=== PATIENT | female | born 1995 | race Hispanic/Latino ===

== ENCOUNTER 2017-06-15 20:48 | Emergency (ER) | payer BC ==
[2017-06-15] MEDS ORDERED: Sodium Chloride 0.9% 1,000 ML IV STA ×2 (20:56→22:52)
--- NOTE | 2017-06-15 21:06 | ED PDOC ---
HPI: Psych/Substance Abuse Time Seen by Provider: 06/15/17 20:54 Chief Complaint (Nursing): Alcohol Ingestion Chief Complaint (Provider): Alcohol Intoxication ED Caveat: Uncooperative History Per: Patient, EMS History/Exam Limitations: intoxication Onset/Duration Of Symptoms: Hrs Additional Complaint(s): Patient is a 21 y/o female with a past medical history of anxiety brought to the ED by EMS after being found on the street intoxicated and combative earlier tonight. Patient admits to drinking alcohol and reports no injuries. History is limited due to patient's uncooperative state. PCP: Non [facility]PH Provider Past Medical History Reviewed: Historical Data, Nursing Documentation, Vital Signs - Medical History PMH: Anxiety - Family History Family History: States: Unknown Family Hx - Allergies Allergies/Adverse Reactions: Allergies Allergy/AdvReac Type Severity Reaction Status Date / Time No Known Allergies Allergy Verified 10/22/15 15:44 Review of Systems Review Of Systems: ROS cannot be obtained secondary to pt's inabilty to answer questions. (History and ROS limited due to patient's uncooperative state) Physical Exam - Reviewed Nursing Documentation Reviewed: Yes Vital Signs Reviewed: Yes - Physical Exam Appears: Positive for: No Acute Distress Head Exam: Positive for: ATRAUMATIC, NORMOCEPHALIC Skin: Positive for: Normal Color, Warm, Dry Eye Exam: Positive for: Normal appearance, EOMI, PERRL Neck: Positive for: Normal, Painless ROM, Supple Cardiovascular/Chest: Positive for: Regular Rate, Rhythm. Negative for: Murmur Respiratory: Positive for: Normal Breath Sounds. Negative for: Respiratory Distress Gastrointestinal/Abdominal: Positive for: Normal Exam, Soft. Negative for: Tenderness Back: Positive for: Normal Inspection. Negative for: L CVA Tenderness, R CVA Tenderness, Vertebral Tenderness Extremity: Positive for: Normal ROM. Negative for: Pedal Edema, Deformity Neurologic/Psych: Positive for: Alert, Oriented (x3), Mood/Affect (agitated). Negative for: Motor/Sensory Deficits Medical Decision Making Medical Decision Making: Time: 2053 Initial Impression: Alcohol intoxication Initial Plan: --Alcohol Serum --Ativan 2mg IM --Haldol 5mg IM --Sodium Chloride 0.9% IV 100 mls/hr --Restraint: Violent or harm to self/others Scribe Attestation: Documented by Wei Causey, acting as a scribe for Cody Palacios MD Provider Scribe Attestation: All medical record entries made by the Scribe were at my direction and personally dictated by me. I have reviewed the chart and agree that the record accurately reflects my personal performance of the history, physical exam, medical decision making, and the department course for this patient. I have also personally directed, reviewed, and agree with the discharge instructions and disposition. Disposition - Clinical Impression Clinical Impression: Alcohol intoxication - Patient ED Disposition Is Patient to be Admitted: Transfer of Care - Disposition Disposition: Transfer of Care Disposition Time: 00:00 Condition: FAIR Forms: [employer] ([place]) Patient Signed Over To: Kevin Mendez
[2017-06-15 22:15] VITALS: RESP 16; TEMP 98.5
[2017-06-15 23:21] VITALS: BP 101/52; PULSE 104; O2SAT 94
--- NOTE | 2017-06-15 23:57 | ED PDOC ---
- ECG O2 Sat by Pulse Oximetry: 94 (RA) Pulse Ox Interpretation: Normal Medical Decision Making Medical Decision Making: Time: 00:00 --Patient endorsed to provider by Dr. Cody Palacios. Pending clinical sobriety. Time: 0400 --Patient is awake, alert and clinically sober. --Medically stable to be discharged home. Clinical Impression: Alcohol intoxication Scribe Attestation: Documented by Lashon Trent, acting as a scribe for Kevin Mendez MD. Provider Scribe Attestation: All medical record entries made by the Scribe were at my direction and personally dictated by me. I have reviewed the chart and agree that the record accurately reflects my personal performance of the history, physical exam, medical decision making, and the department course for this patient. I have also personally directed, reviewed, and agree with the discharge instructions and disposition. Disposition Counseled Patient/Family Regarding: Studies Performed, Diagnosis - Clinical Impression Clinical Impression: Alcohol intoxication - POA Present On Arrival: None - Disposition Disposition: Routine/Home Disposition Time: 04:00 Condition: STABLE Instructions: Alcohol Intoxication (ED) Forms: [employer] ([place])
== END 2017-06-16 05:10 | disposition home or self-care (01) ==
LOC: H.ER 20:48
DX: F10.129 Alcohol abuse with intoxication, unspecified (principal)
CPT/HCPCS: 96360; 96372; 99285; G0480; J1630; J2060; J7040